=== PATIENT | female | born 1965 | race American Indian/Alaskan Native ===

== ENCOUNTER 2016-08-12 05:53 | Day surgery (SDC) | payer MEDICAID, MEDICARE ==
[2016-08-12] MEDS ORDERED: WATER FOR IRRIG STERILE IR ONE (07:11)
[2016-08-12] MEDS ORDERED: DIPRIVAN 10 MG/ML IV ONE ×2 (07:24)
--- NOTE | 2016-08-12 07:26 | Anesthesia Day of Surgery ---
Anesthesia Day of Surgery - Day of Surgery Patient Examined: Yes Patient H&P Reviewed: Yes Patient is NPO: Yes Beta Blockers: No Cardiac Clearance: No Pulmonary Clearance: No
--- NOTE | 2016-08-12 07:27 | Anesthesia Consultation ---
Anesthesia Consult and Med Hx Date of service: 08/12/16 - Airway Anesthetic Teeth Evaluation: Poor ROM Head & Neck: Adequate Mental/Hyoid Distance: Inadequate Mallampati Class: Class III Intubation Access Assessment: Possibly Difficult - Pulmonary Exam CTA: Yes (blbs clear) - Cardiac Exam Cardiac Exam: RRR - Pre-Operative Health Status ASA Pre-Surgery Classification: ASA3 Proposed Anesthetic Plan: MAC - Pulmonary Hx Smoking: Yes - Cardiovascular System Hx Hypertension: Yes - Endocrine Hx Non-Insulin Dependent Diabetes: Yes
[2016-08-12] MEDS ORDERED: XYLOCAINE MPF 2% ONE (07:40)
--- NOTE | 2016-08-12 07:49 | Discharge Summary ---
Providers - Providers Date of discharge: 08/12/16 Attending physician: PONCE OCAMPO Hospitalization Reason for admission: outpateint EGD Condition: Stable Procedures: EGD Disposition: DISCHARGED TO HOME OR SELFCARE Core Measure Documentation - Palliative Care Palliative Care/ Comfort Measures: Not Applicable - Core Measures Any of the following diagnoses?: none Exam - Physical Exam Narrative exam: unchanged from Preop - Constitutional Vitals: Temp Pulse Resp BP Pulse Ox 98.4 F 84 21 151/76 97 08/12/16 07:28 08/12/16 07:28 08/12/16 07:28 08/12/16 07:28 08/12/16 07:28 Plan Activity: no restrictions Diet: low carbohydrate
--- NOTE | 2016-08-12 07:50 | Operative Report ---
Operative Report Operative Report: DATE: 08/12/16 OPERATIVE REPORT - EGD PREOP DIAGNOSIS: gastric dyspepsia POSTOP DIAGNOSIS: same SURGERY: Upper endoscopy. SURGEON: Adri Lala M.D. MID LEVEL BUSINESS ANALYST: n/a TYPE OF ANESTHESIA: MAC. ESTIMATED BLOOD LOSS: None. COMPLICATIONS: None. SPECIMENS REMOVED: None. FINDINGS: 1. normal esophagus 2. gastric pouch 30ml 3. gastrojejunal anastomosis is 30mm INDICATIONS:INDICATION FOR PROCEDURE: Patient is a 51-year-old female s/p gastric bypass. The patient is here today for evaluation for revisional surgery. The patient is here for a planned EGD for gastric dyspepsia. PROCEDURE DETAILS: After consent was reviewed, patient was taken back to the operating room where patient was placed in the left lateral decubitus position and a bite block was placed in the mouth. After a time-out was called, MAC anesthesia was initiated. I then passed the endoscope into the patients oropharynx, into the esophagus, visualized the entire esophagus, which was all within normal limits. I then visualized the gastric pouch which was normal and about 60ml in size. The gastrojejunal anastomosis was normal at about 30mm. The proximal portion of the tommy limb was normal. I then desufflated the gastric pouch and removed the endoscope. Patient tolerated procedure well and was transferred to recovery room in good and stable condition.
[2016-08-12] MEDS ORDERED: NACL 0.9% 1000 ML 1,000 ML IV SCH (08:00)
[2016-08-12 08:19] VITALS: BP 136/67
--- NOTE | 2016-08-12 14:54 | Post Anesthesia Evaluation ---
- Post Anesthesia Evaluation Patient Participated: Yes Airway Patent: Yes Stable Respiratory Function: Yes Nausea/Vomiting: No Temp > 96.8F: Yes Pain Manageable: Yes Adequeate Hydration: Yes Anesthesia Complications: No Block Receding Appropriately: Not Applicable Patient on Ventilator: No
== END 2016-08-12 05:54 | disposition home or self-care (01) ==
LOC: GIO 05:53
PROVIDERS: ATTEND Surgery
DX: K30 Functional dyspepsia (principal); I10 Essential (primary) hypertension; E11.9 Type 2 diabetes mellitus without complications; Z98.84 Bariatric surgery status; F17.210 Nicotine dependence, cigarettes, uncomplicated; Z79.82 Long term (current) use of aspirin; Z79.899 Other long term (current) drug therapy; Z83.3 Family history of diabetes mellitus; Z82.49 Family history of ischemic heart disease and other diseases of the circulatory system; Z80.9 Family history of malignant neoplasm, unspecified
CPT/HCPCS: 43235; 81025; 82962; J2704; J7030